=== PATIENT | male | born 1990 | race Hispanic/Latino ===

== ENCOUNTER 2022-10-31 01:26 | Emergency (ER) | payer OTHER ==
[~2022-10-31] VITALS: Ht 160 cm; Wt 95.7 kg
[2022-10-31 01:27] VITALS: BP 137/78
[2022-10-31] MEDS ORDERED: KETOROLAC 60 MG VIAL (30MG/ML) IM ONE (02:30)
[2022-10-31] MEDS ORDERED: IBUP-2070 PO (04:06)
== END 2022-10-31 04:24 | disposition home or self-care (01) ==
LOC: EDH 01:26
DX: S00.03XA Contusion of scalp, initial encounter (principal); Y04.0XXA Assault by unarmed brawl or fight, initial encounter; Y93.89 Activity, other specified; Y92.89 Other specified places as the place of occurrence of the external cause; Y99.8 Other external cause status
CPT/HCPCS: 99284; 70450; 72125; J1885

== ENCOUNTER 2024-11-26 23:32 | Emergency (ER) | payer SELFPAY ==
[~2024-11-26] VITALS: Ht 160 cm; Wt 84.8 kg
[~2024-11-26 23:32] MED LIST: IBUP-2070 PO
--- NOTE | 2024-11-27 00:03 | ERN ---
ED Note History of Present Illness Stated Complaint: C/O MID BACK PAIN Chief Complaint: Back Pain or Injury Time Seen by MD: 23:35 Time Seen by Midlevel: 23:39 Dictation: 34-year-old male with no past medical or surgical history coming in complaining of mid back pain that started 2-3 months ago. Denies any trauma. Denies any lifting or pushing anything heavy. Patient states he wants to be evaluated in case it is something bad. Allergies: Coded Allergies: No Known Drug Allergies (Unverified Allergy, Unknown, 09/06/22) Home Meds Active Scripts Ibuprofen (Ibuprofen) 600 Mg Tablet, 600 MG PO Q6H PRN for PAIN, #15 TAB 1 Refill Prov:RITIKA DELAROSA Sr., MD 10/31/22 Past Medical History Past Medical History: No Pertinent History Surgical History: None Review of System Dictation Constitutional: Negative for fever,chills, and weight loss Eyes: Negative for injury, pain,redness, and discharge ENT: Negative for injury,pain or swelling Cardiovascular: Negative for chest pain, palpitations, and edema Respiratory: Negative for shortness of breath, cough, and wheezing, Abdomen/GI: Negative for abdominal pain, nausea, vomiting, diarrhea, and constipation Back: Complaining of mid back pain : Negative for injury, bleeding and discharge MS/Extremity: Negative for injury and deformity Skin: Negative for rash, and discoloration Neuro: Negative for headache, weakness, numbness, tingling, and seizure Psych: Negative for suicide ideation, homicidal ideation, and hallucinations Review of Systems: was completed Initial Vital Sign VS Vital Signs Date Time Temp Pulse Resp B/P (MAP) Pulse Ox O2 Delivery O2 Flow Rate FiO2 11/26/24 23:34 98.8 87 20 126/80 100 Room Air Physical Exam Dictation General: awake, alert, NAD Head/Face: Normocephalic, atraumatic Eyes: PERRL, EOMI, vision at baseline ENT: oral cavity clear, TMs clear, no signs of infection Neck: Trachea midline, supple, no nuchal rigidity Cardiovascular: RRR, normal S1/S2, No MRGs, no JVD Respiratory: CTAB, no respiratory distress, No rales or wheezes Abdomen: Soft, non-tender, non-distended, normal bowel sounds, no guarding or rebound. Skin: Warm, dry, normal turgor, no rash MS/Extremity: Pulses equal, no cyanosis, neurovascular intact, FROM Neuro: COAx4, GCS 15, strength 5/5, CN 2-12 intact, normal cerebellar exam, normal gait, Psych: Normal behavior, mood, and affect normal ED Course ED Course Orders Procedure Category Date Status Time Acetaminophen 500mg PHA 11/26/24 Complete Tab (Tylenol 500mg T 23:41 Ketorolac PHA 11/26/24 Complete Tromethamine 15mg/Ml 23:41 Thoracic Spine 2vws RAD 11/27/24 Taken 00:01 Chest 1vw RAD 11/27/24 Taken 00:01 Current Medications Medications (Trade) Dose Ordered Sig/Ayde Route PRN Reason Start Time Stop Time Status Last Admin Dose Admin Acetaminophen (TYLenol 500MG TAB) 1,000 mg ONCE STAT PO 11/26/24 23:41 11/26/24 23:45 DC 11/27/24 00:08 Ketorolac Tromethamine (toRADol) 15 mg ONCE STAT IM 11/26/24 23:41 11/26/24 23:45 DC 11/27/24 00:14 Vital Signs Date Time Temp Pulse Resp B/P (MAP) Pulse Ox O2 Delivery O2 Flow Rate FiO2 11/26/24 23:34 98.8 87 20 126/80 100 Room Air Medical Decision Making MDM MDM: 34-year-old male with no past medical or surgical history coming in complaining of mid back pain that started 2-3 months ago. Denies any trauma. Denies any lifting or pushing anything heavy. Patient states he wants to be evaluated in case it is something bad. Patient states feels better after Toradol. X-rays were interpreted by ER MD. No acute abnormality. Okay to be discharged home to follow up outpatient. Differential diagnosis: Muscle spasm, T-spine abnormality Rationale: Tests considered and ordered secondary to shared decision making include: Previous outside records reviewed: Old ER visits. Risk of complication and/or morbidity or mortality of patient management: None Medications-Per medication reconciliation Need for hospitalization: Patient does not meet criteria for hospitalization. Need for emergency major/minor surgery: No There are no social concerns with this patient. Prescription drug management Prescriptions will include symptomatic care Patient's prior external medical records from other ER visits were reviewed by me as indicated. Prior testing and results from previous visits were reviewed. Prior tests were taken into account with medical decision making and resource utilization, independent historian/historians were used to obtain complete medical history. I independently interpreted the test that were performed, results were reviewed by me and considered findings on radiology if ordered. Medical management and examination interpretation discussions were had by me with other qualified healthcare professionals as indicated for the patient's care. DX & DISP Disposition: Discharge Departure Impression: Primary Impression: Back pain Condition: Stable Additional Instructions: Follow up with PCP in 1- days. take Motrin over the counter for pain. Referrals: SELF,REFERRAL (PCP) Time of Disposition: 01:33 I have reviewed the case, and I agree with, Diagnosis and Plan VERO LUNA NP Nov 27, 2024 00:03
[2024-11-27 01:46] VITALS: BP 122/76; PULSE 76; RESP 18; TEMP 98.2; O2SAT 98
--- NOTE | 2024-11-27 01:49 | HMCIMG ---
EXAM: CR Thoracic Spine, 3 views. CLINICAL HISTORY: Pain. Mid back pain. COMPARISON: None provided. FINDINGS: Thoracic alignment is within normal limits. Normal intervertebral disc spaces. Normal vertebral body heights. No acute fracture. Soft tissues are within normal limits. IMPRESSION: No acute bony abnormality is evident. /[place]
--- NOTE | 2024-11-27 01:49 | HMCIMG ---
EXAM: CR Chest, 1 view CLINICAL HISTORY: Mid back pain. COMPARISON: None provided. FINDINGS: The lungs show no infiltrates or other acute findings. No pleural effusion or pneumothorax. The cardiomediastinal silhouette is within normal limits. No acute osseous abnormality. IMPRESSION: No acute cardiopulmonary process is evident. /[place]
== END 2024-11-27 01:47 | disposition home or self-care (01) ==
LOC: EDH 23:32
DX: M54.6 Pain in thoracic spine (principal)
CPT/HCPCS: 99284; 71045; 72070; 96372; J1885